=== PATIENT | female | born 1955 | race Caucasian/White ===

== ENCOUNTER 2018-11-01 17:00 | Inpatient (IN) | payer MEDICAID ==
[~2018-11-01] VITALS: Ht 154.9 cm; Wt 72.6 kg
[~2018-11-01 17:00] MED LIST: AMLODIPINE; ASPI-1158; ATEN-176; BENA40TA9; FURO-152; GLIP10TA10; NEPVIT PO; [UNRECOGNIZED DRUG - CODE]
[2018-11-01] MEDS ORDERED: SITA25TA3 PO (17:27)
[2018-11-01] MEDS ORDERED: ONDANSETRON HCL 4MG/2ML INJ IV STA (18:14)
[2018-11-01] MEDS ORDERED: ACETAMINOPHEN 325MG TABLET PO STA (18:14)
[2018-11-01] MEDS ORDERED: KETOROLAC 30MG/ML VIAL IV STA (18:14)
[2018-11-01] MEDS ORDERED: MORPHINE SULFATE 4 MG/ML CPJ (NOT FOR IM USE) IV STA (18:14)
[2018-11-01] MEDS ORDERED: SODIUM CHLORIDE 0.9% 1,000 ML IV ONE (18:14)
[2018-11-01] MEDS ORDERED: PIPERACILLIN/TAZ 3.375G PREMIX 50 ML IV ONE (18:15)
[2018-11-01] MEDS ORDERED: VANCOMYCIN 1 G PREMIX 200 ML IV ONE (18:15)
[2018-11-01 19:09] LABS: CHLORIDE 100 mEq/L (98-107); EOSINOPHILS % 5.8 % (0.0-5.0); HEMOGLOBIN. 10.9 g/dL (12.0-16.0); LYMPHOCYTES % 12.2 % (20.0-50.0); MEAN CORPUSCULAR HEMOGLOBIN 28.9 pg (28.0-32.0); MEAN CORPUSCULAR VOLUME 89.7 fL (81.0-99.0); MEAN PLATELET VOLUME 9.2 fl (7.4-10.4); MONOCYTES % 6.6 % (2.0-8.0); NEUTROPHILS % 74.4 % (40.0-76.0); PLATELET 134 x1000/uL (130-400); RED BLOOD CELL COUNT 3.78 mill/uL (4.2-5.4)
[2018-11-01 19:22] LABS: INR 1.2; PROTHROMBIN TIME 11.8 sec (9.6-11.0)
[2018-11-01] MEDS ORDERED: LOSARTAN POTASSIUM 100 MG TABLET PO SCH (20:45)
[2018-11-01] MEDS ORDERED: PIPERACILLIN/TAZ 3.375G PREMIX 50 ML IV SCH (20:45)
[2018-11-01] MEDS ORDERED: ACETAMINOPHEN 325MG TABLET PO PRN (20:45)
[2018-11-01] MEDS ORDERED: DEXTROSE 50% WATER 50ML SYRINGE IV PRN (20:45)
[2018-11-01] MEDS ORDERED: ONDANSETRON HCL 4MG/2ML INJ IV PRN (20:45)
[2018-11-01] MEDS ORDERED: MORPHINE SULFATE 4 MG/ML CPJ (NOT FOR IM USE) IV PRN (21:00)
[2018-11-02] VITALS (16 sets, daily range): BP systolic 95–159; BP diastolic 59–84
[2018-11-02] MEDS ORDERED: ATOR10TA69 PO (04:59)
[2018-11-02] MEDS ORDERED: METO25TA6 PO (05:03)
[2018-11-02] MEDS ORDERED: LEVO25TA7 PO (05:07)
[2018-11-02] MEDS: PIPERACILLIN/TAZ 2.25G PREMIX 50 ML IV SCH ×2 (06:02→09:07)
[2018-11-02] MEDS: INSULIN LISPRO 100 UNITS/ML SUBCUT SCH ×3 (06:26→17:30)
[2018-11-02] MEDS: BLOOD SUGAR DIAGNOSTIC STRIP TEST SCH ×3 (06:26→17:30)
[2018-11-02 06:31] LABS: EOSINOPHILS % 7.1 % (0.0-5.0); HEMATOCRIT. 31.2 % (36.0-48.0); HEMOGLOBIN. 9.9 g/dL (12.0-16.0); MEAN CORPUSCULAR HEMOGLOBIN 28.7 pg (28.0-32.0); MEAN CORPUSCULAR VOLUME 90.2 fL (81.0-99.0); MEAN PLATELET VOLUME 9.7 fl (7.4-10.4); MONOCYTES % 8.8 % (2.0-8.0); NEUTROPHILS % 69.1 % (40.0-76.0); PLATELET 117 x1000/uL (130-400); RED BLOOD CELL COUNT 3.46 mill/uL (4.2-5.4); RED CELL DISTRIBUTION WIDTH 17.9 % (11.6-14.6)
[2018-11-02] MEDS: AMLODIPINE 5MG TABLET PO SCH ×2 (08:40)
[2018-11-02] MEDS ORDERED: ENOXAPARIN 30MG/0.3ML SYR SUBCUT SCH (09:00)
[2018-11-02] MEDS ORDERED: SODIUM BICARBONATE 4% (2.4MEQ) 5ML VIAL IV ONE (13:04)
[2018-11-02] MEDS ORDERED: LIDOCAINE HCL 1% 20ML VIAL (Pyxis) INJ ONE (13:04)
[2018-11-02] MEDS ORDERED: IOHEXOL-300 100 ML BOTTLE ONE (13:08)
[2018-11-02] MEDS ORDERED: FENTANYL CITRATE/PF 50MCG/ML 2ML VIAL IV ONE (13:35)
[2018-11-02] MEDS ORDERED: FENTANYL CITRATE/PF 50MCG/ML 2ML VIAL ONE (13:41)
[2018-11-02] MEDS ORDERED: VANCOMYCIN 500 MG PREMIX 100 ML IV SCH (21:00)
== END 2018-11-02 21:45 | disposition home or self-care (01) | DRG 206 ==
LOC: ER 17:00 → 8WST 19:55 → EDBEDREQSVC 20:56 → EDBEDREQ 20:56 → EDBEDREQTM 20:56 → ENRESERV 22:31
PROVIDERS: ADMIT Internal Medicine; ATTEND Internal Medicine
PROC: B51W1ZZ Fluoroscopy of Dialysis Shunt/Fistula using Low Osmolar Contrast (ICD-10-PCS; principal; 2018-11-02)
PROC: B5181ZZ Fluoroscopy of Superior Vena Cava using Low Osmolar Contrast (ICD-10-PCS; 2018-11-02)
PROC: 5A1D70Z Performance of Urinary Filtration, Intermittent, Less than 6 Hours Per Day (ICD-10-PCS; 2018-11-02)
DX: T82.868A Thrombosis due to vascular prosthetic devices, implants and grafts, initial encounter (principal); E11.22 Type 2 diabetes mellitus with diabetic chronic kidney disease; E11.51 Type 2 diabetes mellitus with diabetic peripheral angiopathy without gangrene; E44.0 Moderate protein-calorie malnutrition; E83.51 Hypocalcemia; E87.1 Hypo-osmolality and hyponatremia; D63.8 Anemia in other chronic diseases classified elsewhere; N18.6 End stage renal disease; Y83.8 Other surgical procedures as the cause of abnormal reaction of the patient, or of later complication, without mention of misadventure at the time of the procedure; E03.9 Hypothyroidism, unspecified; I25.10 Atherosclerotic heart disease of native coronary artery without angina pectoris; E66.9 Obesity, unspecified; E78.00 Pure hypercholesterolemia, unspecified; I12.9 Hypertensive chronic kidney disease with stage 1 through stage 4 chronic kidney disease, or unspecified chronic kidney disease; E78.5 Hyperlipidemia, unspecified; Z79.4 Long term (current) use of insulin; Z89.422 Acquired absence of other left toe(s); Y92.89 Other specified places as the place of occurrence of the external cause; Z68.30 Body mass index [BMI] 30.0-30.9, adult; Z99.2 Dependence on renal dialysis; Z89.429 Acquired absence of other toe(s), unspecified side
CPT/HCPCS: 36415; 36901; 71045; 80048; 82962; 83036; 83605; 83880; 84134; 84145; 84484; 93005; 96365; 96375; 99285; J1644; J1650; J2270; J2405; J2543; J3010; J3370; J3490; J7030; Q9967